=== PATIENT | female | born 1965 | race Caucasian/White ===

== ENCOUNTER 2024-12-29 10:45 | Outpatient (RCR) | payer OTHER, SELFPAY | END 2025-04-28 23:59 | disposition home or self-care (01) | PROVIDERS: Visit Provider Pediatrics | DX: S42.001A Fracture of unspecified part of right clavicle, initial encounter for closed fracture (principal); Z51.89 Encounter for other specified aftercare | CPT/HCPCS: 97110; 97112; 97161; 97530 ==